=== PATIENT | female | born 1975 | race Caucasian/White ===

== ENCOUNTER → 2019-10-06 | Outpatient (CLI) | payer SELFPAY ==
[2019-10-06 16:16] LABS: BASOPHILS ABSOLUTE AUTO 0.09 K/mm3 (0.00-0.23); BASOPHILS PERCENT AUTO 1 % (0-2); EOSINOPHILS ABSOLUTE AUTO 0.23 K/mm3 (0.00-0.68); EOSINOPHILS PERCENT AUTO 3 % (0-6); Hemoglobin 11.4 g/dL (11.5-16.0); IMMATURE GRAN ABSOLUTE AUTO 0.02 K/mm3 (0.00-0.10); IMMATURE GRAN PERCENT AUTO 0 % (0-1); LYMPHOCYTES PERCENT AUTO 30 % (21-46); MONOCYTES PERCENT AUTO 7 % (4-13); Mean Corpuscular HGB 24.7 pg (26.0-34.0); Mean Corpuscular HGB Conc 30.8 g/dL (31.5-36.5); Mean Corpuscular Volume 80 fL (80-100); Mean Platelet Volume 11.1 fL (9.1-12.4); NEUTROPHILS ABSOLUTE AUTO 5.38 K/mm3 (1.96-9.15); NEUTROPHILS PERCENT AUTO 60 % (41-73); Platelet Count 376 K/mm3 (150-400); RDW Coefficient Variation 16.6 % (11.7-14.2); RDW Standard Deviation 48.1 fL (35.1-46.3); Red Blood Cell Count 4.61 M/mm3 (3.80-5.20); White Blood Cell Count 9.02 K/mm3 (4.00-11.30)
[2019-10-06 16:49] LABS: Alanine Aminotransfer (ALT/SGP 23 U/L (12-78); Albumin, Blood 3.6 g/dL (3.4-5.0); Albumin/Globulin Ratio 0.9 (0.8-1.8); Alk Phos 62 U/L (50-136); Anion Gap 9 mmol/L (6-16); Aspartate Aminotrans (AST/SGOT 11 U/L (12-37); Bilirubin, Total 0.2 mg/dL (0.1-1.0); Blood Urea Nitrogen 8 mg/dL (8-24); Bun/Creatinine Ratio 11.9 (12.0-20.0); CO2, Blood 24 mmol/L (21-32); Calcium, Blood 8.9 mg/dL (8.5-10.1); Chloride, Blood 107 mmol/L (98-108); Creatinine, Blood 0.68 mg/dL (0.40-1.00); Globulin, Blood 3.9 g/dL (2.2-4.0); Glomerular Filtration Rate >60 (60-); Glucose, Blood 111 mg/dL (70-99); Potassium, Blood 3.5 mmol/L (3.5-5.5); Sodium, Blood 140 mmol/L (136-145); Total Protein, Blood 7.5 g/dL (6.4-8.2)
== END | disposition home or self-care (01) ==
LOC: LAB 15:10 → LAB SHORT 15:10
PROVIDERS: Emergency Medicine
DX: R10.84 Generalized abdominal pain (principal)
CPT/HCPCS: 80053; 83690; 85025; 86304

== ENCOUNTER 2021-05-03 21:17 | Emergency (ER) | payer OTHER ==
[~2021-05-03] VITALS: Ht 165.1 cm; Wt 90.7 kg
[2021-05-03 21:43] LABS: BASOPHILS PERCENT AUTO 1 % (0-2); EOSINOPHILS ABSOLUTE AUTO 0.37 K/mm3 (0.00-0.68); EOSINOPHILS PERCENT AUTO 4 % (0-6); Hematocrit 39.6 % (33.0-51.0); Hemoglobin 13.2 g/dL (11.5-16.0); IMMATURE GRAN ABSOLUTE AUTO 0.02 K/mm3 (0.00-0.10); IMMATURE GRAN PERCENT AUTO 0 % (0-1); LYMPHOCYTES ABSOLUTE AUTO 3.08 K/mm3 (0.84-5.20); LYMPHOCYTES PERCENT AUTO 30 % (21-46); MONOCYTES ABSOLUTE AUTO 0.62 K/mm3 (0.16-1.47); MONOCYTES PERCENT AUTO 6 % (4-13); Mean Corpuscular HGB 28.7 pg (26.0-34.0); Mean Corpuscular HGB Conc 33.3 g/dL (31.5-36.5); Mean Corpuscular Volume 86 fL (80-100); Mean Platelet Volume 9.9 fL (9.1-12.4); NEUTROPHILS ABSOLUTE AUTO 6.14 K/mm3 (1.96-9.15); NEUTROPHILS PERCENT AUTO 59 % (41-73); Platelet Count 316 K/mm3 (150-400); RDW Coefficient Variation 13.3 % (11.7-14.2); RDW Standard Deviation 41.3 fL (35.1-46.3); White Blood Cell Count 10.33 K/mm3 (4.00-11.30)
[2021-05-03 22:03] LABS: Alanine Aminotransfer (ALT/SGP 51 U/L (12-78); Albumin, Blood 3.7 g/dL (3.4-5.0); Albumin/Globulin Ratio 0.9 (0.8-1.8); Alk Phos 96 U/L (50-136); Anion Gap 3 mmol/L (6-16); Aspartate Aminotrans (AST/SGOT 20 U/L (12-37); Bilirubin, Total 0.2 mg/dL (0.1-1.0); Blood Urea Nitrogen 8 mg/dL (8-24); Bun/Creatinine Ratio 9.6 (12.0-20.0); CO2, Blood 30 mmol/L (21-32); Calcium, Blood 9.3 mg/dL (8.5-10.1); Chloride, Blood 105 mmol/L (98-108); Creatinine, Blood 0.84 mg/dL (0.40-1.00); Globulin, Blood 3.9 g/dL (2.2-4.0); Glomerular Filtration Rate >60 (60-); Glucose, Blood 121 mg/dL (70-99); Potassium, Blood 3.6 mmol/L (3.5-5.5); Sodium, Blood 138 mmol/L (136-145); Total Protein, Blood 7.6 g/dL (6.4-8.2)
[2021-05-03 22:05] LABS: Source, Urine Clean Catch
[2021-05-03 22:07] LABS: Bilirubin, Urine Neg (Neg); Blood, Urine 1+ (Neg); Glucose Qualitative, Urine Neg (Neg); Ketones, Urine 1+ (Neg); Leukocyte Esterase, Urine Neg (Neg); Nitrite, Urine Neg (Neg); Protein, Urine 1+ (Neg); Specific Gravity, Urine 1.025 (1.003-1.022); Urobilinogen, Urine NORM (Normal)
[2021-05-03 22:08] LABS: Appearance, Urine Clear (Clear); Color, Urine Yellow (P-Yellow)
[2021-05-03 22:13] LABS: Bacteria Few /hpf; Red Blood Cells, Urine 0-2 /hpf (0-2); Squamous Epithelial Cells Few /hpf (Few); White Blood Cells, Urine Rare /hpf (0-5)
[2021-05-03] MEDS ORDERED: DOTTI1 EA19 TD (23:41)
[2021-05-03] MEDS ORDERED: OMEP20ER PO (23:54)
[2021-05-03] MEDS ORDERED: HYDACE10B PO (23:54)
== END 2021-05-04 01:12 | disposition home or self-care (01) ==
LOC: ER 21:17
PROVIDERS: Physician Assistant
DX: K85.90 Acute pancreatitis without necrosis or infection, unspecified (principal); Z79.3 Long term (current) use of hormonal contraceptives
CPT/HCPCS: 36415; 76705; 80053; 81001; 83690; 85025; 96361; 96374; 96375; 99284-25; J2405; J3010; J7030

== ENCOUNTER → 2021-05-14 | Outpatient (CLI) | payer OTHER ==
[~2021-05-14] MED LIST: DOTTI1 EA19 TD; HYDACE10B PO; OMEP20ER PO
[2021-05-14 19:19] LABS: Alanine Aminotransfer (ALT/SGP 62 U/L (12-78); Albumin, Blood 3.9 g/dL (3.4-5.0); Albumin/Globulin Ratio 0.9 (0.8-1.8); Alk Phos 97 U/L (50-136); Anion Gap 6 mmol/L (6-16); Aspartate Aminotrans (AST/SGOT 28 U/L (12-37); Bilirubin, Total 0.4 mg/dL (0.1-1.0); Blood Urea Nitrogen 9 mg/dL (8-24); CHOL/HDL RATIO 6.6; CO2, Blood 28 mmol/L (21-32); Calcium, Blood 9.6 mg/dL (8.5-10.1); Chloride, Blood 106 mmol/L (98-108); Cholesterol 312 mg/dL (50-200); Globulin, Blood 4.4 g/dL (2.2-4.0); Glucose, Blood 91 mg/dL (70-99); HDL Cholesterol 47 mg/dL (>39); LDL/HDL RATIO 4.4; Low Density Lipoprotein Chol 208 mg/dL (0-110); Potassium, Blood 3.7 mmol/L (3.5-5.5); Sodium, Blood 140 mmol/L (136-145); Total Protein, Blood 8.3 g/dL (6.4-8.2); Triglycerides 285 mg/dL (30-160); Very Low Density Lipoprot Chol 57 mg/dL (6-32)
[2021-05-14 19:22] LABS: BASOPHILS ABSOLUTE AUTO 0.08 K/mm3 (0.00-0.23); BASOPHILS PERCENT AUTO 1 % (0-2); EOSINOPHILS ABSOLUTE AUTO 0.33 K/mm3 (0.00-0.68); EOSINOPHILS PERCENT AUTO 4 % (0-6); Hematocrit 43.6 % (33.0-51.0); Hemoglobin 14.2 g/dL (11.5-16.0); IMMATURE GRAN ABSOLUTE AUTO 0.02 K/mm3 (0.00-0.10); IMMATURE GRAN PERCENT AUTO 0 % (0-1); LYMPHOCYTES ABSOLUTE AUTO 2.69 K/mm3 (0.84-5.20); LYMPHOCYTES PERCENT AUTO 34 % (21-46); MONOCYTES ABSOLUTE AUTO 0.55 K/mm3 (0.16-1.47); MONOCYTES PERCENT AUTO 7 % (4-13); Mean Corpuscular HGB 27.9 pg (26.0-34.0); Mean Corpuscular HGB Conc 32.6 g/dL (31.5-36.5); Mean Corpuscular Volume 86 fL (80-100); Mean Platelet Volume 10.9 fL (9.1-12.4); NEUTROPHILS ABSOLUTE AUTO 4.28 K/mm3 (1.96-9.15); NEUTROPHILS PERCENT AUTO 54 % (41-73); Platelet Count 344 K/mm3 (150-400); RDW Coefficient Variation 13.1 % (11.7-14.2); RDW Standard Deviation 41.1 fL (35.1-46.3); Red Blood Cell Count 5.09 M/mm3 (3.80-5.20); White Blood Cell Count 7.95 K/mm3 (4.00-11.30)
[2021-05-14 19:23] LABS: Bun/Creatinine Ratio 13.3 (12.0-20.0); Creatinine, Blood 0.68 mg/dL (0.40-1.00); Glomerular Filtration Rate >60 (60-)
== END | disposition home or self-care (01) ==
LOC: LAB SHORT 16:00 → LAB 16:00
PROVIDERS: Nurse Practitioner Family
DX: Z13.29 Encounter for screening for other suspected endocrine disorder (principal); K85.90 Acute pancreatitis without necrosis or infection, unspecified; K76.9 Liver disease, unspecified; K22.8 Other specified diseases of esophagus; Z86.018 Personal history of other benign neoplasm
CPT/HCPCS: 80053; 80061; 84443; 85025; 86803